=== PATIENT | male | born 1970 | race Caucasian/White ===

== ENCOUNTER 2019-02-09 02:21 | Emergency (ER) | payer SELFPAY ==
[2019-02-09 03:40] VITALS: BP 128/72; PULSE 78; TEMP 97.9; BMI 33.4
--- NOTE | 2019-02-09 03:42 | PDOC ---
Attending Attestation - HPI HPI: 02/09/19 04:09 Patient is a 48 year old male with a significant past medical history of multiple orthopedic issues who reports to the ED with complaints of general body pain that began x1 year ago. Patient reports experiencing diffuse lower back pain, left elbow pain, and right knee pain that he states has increased gradually over time. He reports coming in to the ED for pain medication to get him through the night. Patient states that he normally gets percocet off the street, but has a private doctor he thinks he can get the medication from. Denies changes to his pain. Denies focal weakness, urinary incontinence/ retention, IVDA, fever, cancer history. Patient states he was dropped off in the ED and will take a cab home. Denies chest pain, sob. Denies nausea, vomiting . Denies fevers, chills. Denies contact with sick individuals, out of state travelling. Denies any other symptoms. Allergies: None Social history: No smoking. No alcohol. No illicit drugs. Surgical history: Elbow surgery PMD: None - Physicial Exam PE: 02/09/19 04:09 Agree with residents Physical Exam. <Rusty Clark - Last Filed: 02/09/19 04:09> - Resident Resident Name: Aurelio Langston - ED Attending Attestation I have performed the following: I have examined & evaluated the patient, The case was reviewed & discussed with the resident, I agree w/resident's findings & plan - Medical Decision Making 02/09/19 04:23 48-year-old male with multiple pain complaints requesting a specific dosage of Percocet Patient given Percocet 1 tab in the emergency department and was advised to follow-up with his regular physicians for long-term pain management <Emely Kemp - Last Filed: 02/09/19 04:24>
--- NOTE | 2019-02-09 04:01 | PDOC ---
History of Present Illness - General Chief Complaint: Back Pain Stated Complaint: BACK/KNEE PAIN Time Seen by Provider: 02/09/19 03:41 History Source: Patient Exam Limitations: No Limitations - History of Present Illness Initial Comments: 02/09/19 03:56 Patient is a 48M with history of L elbow surgery, L clavicle fracture, chronic knee, back and neck pain here today with multiple pain complaints. He states his back, neck, R knee and L elbow have been hurting for the past 1.5 years. Patient states that he normally gets percocet off the street, but has a private doctor he thinks he can get the medication from. Denies changes to his pain. Denies focal weakness, urinary incontinence/retention, IVDA, fever, cancer history. Patient states he was dropped off in the ED and will take a cab home. Past History - Past Medical History Allergies/Adverse Reactions: Allergies Allergy/AdvReac Type Severity Reaction Status Date / Time No Known Allergies Allergy Verified 02/09/19 03:31 - Suicide/Smoking/Psychosocial Hx Smoking History: Never smoked Have you smoked in the past 12 months: No Information on smoking cessation initiated: No Hx Alcohol Use: No Drug/Substance Use Hx: No Review of Systems - Review of Systems Able to Perform ROS?: Yes Comments:: 02/09/19 04:04 GENERAL/CONSTITUTIONAL: No fever or chills. No weakness. HEAD, EYES, EARS, NOSE AND THROAT: No change in vision. No sore throat. CARDIOVASCULAR: No chest pain or shortness of breath RESPIRATORY: No cough, wheezing, or hemoptysis. GASTROINTESTINAL: No nausea, vomiting, diarrhea or constipation. GENITOURINARY: No dysuria, frequency, or change in urination. MUSCULOSKELETAL: +back pain, +neck pain, +l elbow pain SKIN: No rash NEUROLOGIC: No headache, vertigo, loss of consciousness, or change in strength/ sensation. ENDOCRINE: No increased thirst. No abnormal weight change *Physical Exam - Vital Signs Last Vital Signs Temp Pulse Resp BP Pulse Ox 97.9 F 78 18 128/72 97 02/09/19 02:21 02/09/19 02:21 02/09/19 02:21 02/09/19 02:21 02/09/19 02:21 - Physical Exam Comments: 02/09/19 04:04 GENERAL: Awake, alert, and fully oriented, in no acute distress HEAD: No signs of trauma, normocephalic, atraumatic EYES: PERRLA, EOMI, sclera anicteric, conjunctiva clear ENT: Auricles normal inspection, hearing grossly normal, nares patent, oropharynx clear without exudates. Moist mucosa NECK: Normal ROM, supple, no lymphadenopathy, JVD, or masses, no midline tenderness BACK: No midline tenderness, no paraspinal tenderness LUNGS: No distress, speaks full sentences, clear to auscultation bilaterally HEART: Regular rate and rhythm, normal S1 and S2, no murmurs, rubs or gallops, peripheral pulses normal and equal bilaterally. ABDOMEN: Soft, nontender, normoactive bowel sounds. No guarding, no rebound. No masses EXTREMITIES: Normal inspection, Normal range of motion, no edema. No clubbing or cyanosis. NEUROLOGICAL: Cranial nerves II through XII grossly intact. Normal speech, normal gait, no focal sensorimotor deficits SKIN: Warm, Dry, normal turgor, no rashes or lesions noted. Medical Decision Making - Medical Decision Making 02/09/19 04:05 Patient is 48M here today with chronic pain, no acute pain complaints. Vitals normal and stable. Will treat with one percocet. Will discharge. *DC/Admit/Observation/Transfer Diagnosis at time of Disposition: Chronic pain - Discharge Dispostion Disposition: HOME Condition at time of disposition: Good Decision to Admit order: No - Referrals - Patient Instructions Printed Discharge Instructions: DI for Chronic Pain -- Adult Additional Instructions: Please follow up with your primary care doctor for your pain. Please return if you have any new, worsening or concerning symptoms, especially fever, focal weakness, or increasing pain. - Post Discharge Activity
== END 2019-02-09 04:14 | disposition home or self-care (01) ==
LOC: JER 02:21
DX: G89.29 Other chronic pain (principal)
CPT/HCPCS: 99281-25